=== PATIENT | male | born 2000 | race Two or more races ===

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

== ENCOUNTER 2021-06-14 20:11 | Emergency (ER) | payer OTHER ==
[~2021-06-14] VITALS: Ht 175.3 cm; Wt 131.8 kg
[~2021-06-14 20:11] MED LIST changes: +ALBU8HFA IH; -NOCURR
[2021-06-14 20:14] VITALS: BP 137/83
== END 2021-06-14 22:44 | disposition home or self-care (01) ==
LOC: EMS 20:12
DX: S93.401A Sprain of unspecified ligament of right ankle, initial encounter (principal); J45.909 Unspecified asthma, uncomplicated; W22.8XXA Striking against or struck by other objects, initial encounter; Y93.01 Activity, walking, marching and hiking; Y92.89 Other specified places as the place of occurrence of the external cause; Y99.8 Other external cause status
CPT/HCPCS: 99283